=== PATIENT | male | born 1980 | race Hispanic/Latino ===

== ENCOUNTER 2023-07-14 15:49 | Emergency (ER) | payer OTHER, SELFPAY ==
[2023-07-14] MEDS ORDERED: Ondansetron PF 4 MG/2 ML Vial ONE (16:09)
[2023-07-14] MEDS ORDERED: Morphine 4 MG/ML VIAL ONE (16:09)
[2023-07-14] MEDS ORDERED: Boostrix 0.5 ML (Tdap) VIAL (>/=7 yrs of age) ONE (16:45)
[2023-07-14] MEDS ORDERED: Sodium Chloride 0.9% 100 ML ONE (17:21)
[2023-07-14] MEDS ORDERED: CEFAZOLIN 1 GM VIAL ONE (17:21)
== END 2023-07-14 18:02 | disposition short-term general hospital (02) ==
LOC: NAV ERS 15:49
DX: S62.512B Displaced fracture of proximal phalanx of left thumb, initial encounter for open fracture (principal); Z23 Encounter for immunization; W23.1XXA Caught, crushed, jammed, or pinched between stationary objects, initial encounter
CPT/HCPCS: 90471; 90715; 96365; 96375; J0690; J2270; J2405; J3490